=== PATIENT | female | born 1990 | race Caucasian/White ===

== ENCOUNTER 2019-06-06 18:32 | Emergency (ER) | payer BC ==
[2019-06-06] MEDS ORDERED: Sodium Chloride 0.9% 10 ML Syringe FLUSH PRN (18:43)
--- NOTE | 2019-06-06 18:49 | EDM.PDOC ---
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 Patient reports that she is status post vaginal delivery on 05/05/2019. Patient reports that since that time she's had vaginal bleeding because she is taking Lovenox for DVTs. Patient reports that this morning she started having increased amount of bleeding passing multiple clots she's been through 20 pads today so she became concerned and came to the emergency department for evaluation. Patient reports that she's had mild abdominal cramping which is consistent with her normal menses nausea no vomiting no fever no chills no back pain no shortness of breath no chest pain. Patient's OB is Dr. Dickerson. Of note, patient reports that she started bleeding approximately 8 AM this morning and the bleeding has been consistent throughout the day - Related Data Allergies Allergy/AdvReac Type Severity Reaction Status Date / Time No Known Allergies Allergy Verified 06/06/19 18:45 Home Meds: Home Meds Ferrous Sulfate [Iron] 1 tab PO DAILY 05/05/19 [History] [id number]/Iron Fumarate/FA/DSS [ 19 Tablet] 1 each PO DAILY 05/05/19 [ History] Acetaminophen [Tylenol] 650 mg PO Q4H PRN tablet 05/07/19 [Rx] Enoxaparin [Lovenox] 90 mg SUBCUT Q12H syringe 05/07/19 [Rx] Past Medical History - Past Health History Medical/Surgical History: Denies Medical/Surgical History Cardiovascular History: Reports: Other (See Below) Other Cardiovascular History: history of DVT in the last 6 months, treated with lovenox 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 Denies: Hematemesis, Hematochezia, Nausea, Vomiting : Reports: Other (Vaginal bleeding) ED EXAM, RENAL/ - Physical Exam Exam: See Below Exam Limited By: No Limitations General Appearance: Alert, WD/WN, Mild Distress Ears: Normal External Exam, Normal Canal, Hearing Grossly Normal, Normal TMs Throat/Mouth: Normal Inspection, Normal Lips, Normal Teeth, Normal Gums, Normal Oropharynx, Normal Voice, No Airway Compromise Head: Atraumatic, Normocephalic Neck: Normal Inspection, Supple, Non-Tender, Full Range of Motion Respiratory/Chest: No Respiratory Distress, Lungs Clear, Normal Breath Sounds, No Accessory Muscle Use, Chest Non-Tender Cardiovascular: Normal Peripheral Pulses, Regular Rate, Rhythm, No Edema, No Gallop, No JVD, No Murmur, No Rub GI/Abdominal: Normal Bowel Sounds, Soft, Non-Tender, No Organomegaly, No Distention, No Abnormal Bruit, No Mass (Female) Exam: Vaginal Bleeding, Other (Pelvic exam, 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 , clots and blood in the vault were cleared him a patient has clots in the os with minimal ooze of blood as a constant small stream) Back Exam: Normal Inspection, Full Range of Motion, NT Extremities: Normal Inspection, Normal Range of Motion, Non-Tender, Normal Capillary Refill, No Pedal Edema Neurological: Alert Skin Exam: Warm, Dry, No Rash Course - Vital Signs Last Recorded V/S: Last Vital Signs Temp 96.6 F 06/06/19 18:39 Pulse 104 H 06/06/19 18:39 Resp 14 06/06/19 18:39 BP 105/81 06/06/19 18:39 Pulse Ox 97 06/06/19 18:39 - Orders/Labs/Meds Orders: Active Orders 24 hr Category Date Time Status Pelvic Exam, Set Up [RC] ASDIRECTED Care 06/06/19 18:44 Active COMPREHENSIVE METABOLIC PN,CMP [CHEM] Stat Lab 06/06/19 19:30 Received INR,PT,PROTHROMBIN TIME [COAG] Stat Lab 06/06/19 19:30 Received TYPE AND SCREEN [BBK] Stat Lab 06/06/19 19:30 Received Sodium Chloride 0.9% [Saline Flush] Med 06/06/19 18:43 Active 10 ml FLUSH ASDIRECTED PRN Saline Lock Insert [OM.PC] Stat Oth 06/06/19 18:43 Ordered Medication Orders Sodium Chloride (Saline Flush) 10 ml FLUSH ASDIRECTED PRN PRN Reason: Keep Vein Open Last Admin: 06/06/19 19:44 Dose: 10 ml Labs: Laboratory Tests 06/06/19 Range/Units 19:30 WBC 8.99 (3.98-10.04) K/mm3 RBC 3.60 L (3.98-5.22) M/mm3 Hgb 11.2 D (11.2-15.7) gm/dl Hct 34.0 L (34.1-44.9) % MCV 94.4 (79.4-94.8) fl MCH 31.1 (25.6-32.2) pg MCHC 32.9 (32.2-35.5) g/dl RDW Std Deviation 41.5 (36.4-46.3) fL Plt Count 404 H D (182-369) K/mm3 MPV 8.7 L (9.4-12.3) fl Neut % (Auto) 60.3 (34.0-71.1) % Lymph % (Auto) 30.6 (19.3-51.7) % [place] % (Auto) 7.3 (4.7-12.5) % Eos % (Auto) 1.4 (0.7-5.8) Baso % (Auto) 0.3 (0.1-1.2) % Neut # (Auto) 5.41 (1.56-6.13) K/mm3 Lymph # (Auto) 2.75 (1.18-3.74) K/mm3 [place] # (Auto) 0.66 H (0.24-0.36) K/mm3 Eos # (Auto) 0.13 (0.04-0.36) K/mm3 Baso # (Auto) 0.03 (0.01-0.08) K/mm3 Meds: Medications Generic Name Dose Route Start Last Admin Trade Name Freq PRN Reason Stop Dose Admin Sodium Chloride 10 ml 06/06/19 18:43 06/06/19 19:44 Saline Flush FLUSH 10 ml ASDIRECTED PRN Administration Keep Vein Open Discontinued Medications Generic Name Dose Route Start Last Admin Trade Name Freq PRN Reason Stop Dose Admin Misoprostol 600 mcg 06/06/19 19:50 Cytotec PO 06/06/19 19:51 ONETIME ONE - Re-Assessments/Exams Free Text/Narrative Re-Assessment/Exam: 06/06/19 19:[address] Iglesias who encourages 600 g of Cytotec by mouth have patient follow-up with Dr. Dickerson tomorrow Departure - Departure Time of Disposition: 19:55 Disposition: Home, Self-Care 01 Clinical Impression: Dysfunctional uterine bleeding - Discharge Information Referrals: Saravanan Dickerson MD [Primary Care Provider] - Forms: ED Department Discharge Additional Instructions: Home, rest, follow-up with Dr. Dickerson tomorrow and return to the emergency department sooner for any worsening condition Sepsis Event Note - Evaluation Sepsis Screening Result: No Definite Risk - Focused Exam Vital Signs: Vital Signs Temp Pulse Resp BP Pulse Ox 06/06/19 18:39 96.6 F 104 H 14 105/81 97 Date Exam was Performed: 06/06/19 Time Exam was Performed: 19:55 - My Orders Last 24 Hours: My Active Orders 06/06/19 18:43 Sodium Chloride 0.9% [Saline Flush] 10 ml FLUSH ASDIRECTED PRN Saline Lock Insert [OM.PC] Stat 06/06/19 18:44 Pelvic Exam, Set Up [RC] ASDIRECTED 06/06/19 19:30 COMPREHENSIVE METABOLIC PN,CMP [CHEM] Stat INR,PT,PROTHROMBIN TIME [COAG] Stat TYPE AND SCREEN [BBK] Stat - Assessment/Plan Last 24 Hours: My Active Orders 06/06/19 18:43 Sodium Chloride 0.9% [Saline Flush] 10 ml FLUSH ASDIRECTED PRN Saline Lock Insert [OM.PC] Stat 06/06/19 18:44 Pelvic Exam, Set Up [RC] ASDIRECTED 06/06/19 19:30 COMPREHENSIVE METABOLIC PN,CMP [CHEM] Stat INR,PT,PROTHROMBIN TIME [COAG] Stat TYPE AND SCREEN [BBK] Stat
[2019-06-06] MEDS ORDERED: Misoprostol 100 MCG Tab PO ONE (19:50)
== END 2019-06-06 20:24 | disposition home or self-care (01) ==
LOC: JD.ED 18:32
DX: O72.2 Delayed and secondary postpartum hemorrhage (principal); Z86.718 Personal history of other venous thrombosis and embolism; Z79.01 Long term (current) use of anticoagulants
CPT/HCPCS: 36415; 80053; 85025; 85610; 86850; 86900; 86901; 99284; A9270; 99283

== ENCOUNTER 2020-06-01 00:21 | Inpatient (IN) | payer BC ==
[2020-06-01] MEDS ORDERED: Sodium Chloride 0.9% 10 ML Syringe FLUSH PRN (00:34)
[2020-06-01] MEDS ORDERED: Nalbuphine 10 MG/1 ML Vial IVPUSH PRN (00:34)
[2020-06-01] MEDS ORDERED: Lidocaine 1% 50 ML MDV INJECT ONE (00:34)
[2020-06-01] MEDS ORDERED: Calcium Carbonate 500 MG Tab.Chew PO PRN (00:34)
[2020-06-01] MEDS ORDERED: Ondansetron 4 MG/2 ML SDV IVPUSH PRN ×2 (00:34→01:35)
[2020-06-01] MEDS ORDERED: Oxytocin/Lactated Ringers 10 UNIT/1,000 ML BAG IV SCH ×2 (00:45)
[2020-06-01] MEDS: Lactated Ringers 1,000 ML IV SCH ×3 (01:11→02:47)
[2020-06-01] MEDS ORDERED: fentaNYL 100 MCG/2 ML SDV EPIDUR PRN (01:35)
[2020-06-01] MEDS ORDERED: ePHEDrine 50 MG/ML SDV IVPUSH PRN (01:35)
--- NOTE | 2020-06-01 01:39 | PCM.PREANE ---
Preanesthetic Assessment - Procedure Proposed Procedure: Epidural - Anesthesia/Transfusion/Family Hx Anesthesia History: Prior Anesthesia Without Reaction Family History of Anesthesia Reaction: No Transfusion History: No Prior Transfusion(s) Intubation History: Unknown - Review of Systems General: No Symptoms Pulmonary: No Symptoms Cardiovascular: No Symptoms Gastrointestinal: No Symptoms (GERD) Neurological: No Symptoms Other: Reports: None (History of DVT in November 2018(On daily lovenox) last dose 05/31/2020 @ 0545 1/2 dose), Easy Bruising - Physical Assessment NPO Status Date: 05/31/20 NPO Status Time: 19:00 Vital Signs: HR: Sat: B/P: Resp: Temp: Height: 1.63 m Weight: 100.244 kg ASA Class: 2 Mental Status: Alert & Oriented x3 Airway Class: Mallampati = 2 Dentition: Reports: Normal Dentition, Caries Thyro-Mental Finger Breadths: 3 Mouth Opening Finger Breadths: 3 ROM/Head Extension: Full Lungs: Clear to Auscultation, Normal Respiratory Effort Cardiovascular: Regular Rate, Regular Rhythm, No Murmurs - Lab Values: Laboratory Last Values WBC 8.76 K/mm3 (3.98-10.04) 06/01/20 00:49 RBC 3.78 M/mm3 (3.98-5.22) L 06/01/20 00:49 Hgb 11.8 gm/dl (11.2-15.7) 06/01/20 00:49 Hct 35.7 % (34.1-44.9) 06/01/20 00:49 MCV 94.4 fl (79.4-94.8) 06/01/20 00:49 MCH 31.2 pg (25.6-32.2) 06/01/20 00:49 MCHC 33.1 g/dl (32.2-35.5) 06/01/20 00:49 RDW Std Deviation 43.0 fL (36.4-46.3) 06/01/20 00:49 Plt Count 259 K/mm3 (182-369) 06/01/20 00:49 MPV 9.9 fl (9.4-12.3) 06/01/20 00:49 Neut % (Auto) 63.1 % (34.0-71.1) 06/01/20 00:49 Lymph % (Auto) 27.9 % (19.3-51.7) 06/01/20 00:49 [place] % (Auto) 8.1 % (4.7-12.5) 06/01/20 00:49 Eos % (Auto) 0.5 (0.7-5.8) L 06/01/20 00:49 Baso % (Auto) 0.2 % (0.1-1.2) 06/01/20 00:49 Neut # (Auto) 5.53 K/mm3 (1.56-6.13) 06/01/20 00:49 Lymph # (Auto) 2.44 K/mm3 (1.18-3.74) 06/01/20 00:49 [place] # (Auto) 0.71 K/mm3 (0.24-0.36) H 06/01/20 00:49 Eos # (Auto) 0.04 K/mm3 (0.04-0.36) 06/01/20 00:49 Baso # (Auto) 0.02 K/mm3 (0.01-0.08) 06/01/20 00:49 Above labs reviewed and noted and within acceptable ranges to proceed with epidural. - Allergies Allergies/Adverse Reactions: Allergies Allergy/AdvReac Type Severity Reaction Status Date / Time No Known Allergies Allergy Verified 06/01/20 00:34 - Anesthesia Plan Pre-Op Medication Ordered: None - Acknowledgements Anesthesia Type Planned: Epidural Pt an Appropriate Candidate for the Planned Anesthesia: Yes Alternatives and Risks of Anesthesia Discussed w Pt/Guardian: Yes Pt/Guardian Understands and Agrees with Anesthesia Plan: Yes PreAnesthesia Questionnaire - Past Health History Medical/Surgical History: Denies Medical/Surgical History Cardiovascular History: Reports: Other (See Below) Other Cardiovascular History: history of DVT in the last 6 months, treated with lovenox 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: Hematologic History: Reports: Anticoagulation Therapy Other Hematologic History: Takes lovenox 40mg once daily last taken 05/31/545 only took 1/2 dose 20 mg - Past Surgical History Cardiovascular Surgical History: Reports: None - HOME MEDS Home Medications: Home Meds Ferrous Sulfate [Iron] 1 tab PO DAILY 05/05/19 [History] Prenat 115/Iron Fum/Folic/Dss [ 19 Tablet] 1 each PO DAILY 05/05/19 [History] Enoxaparin [Lovenox] 40 mg SUBCUT Q12H 06/01/20 [History] - CURRENT (IN HOUSE) MEDS Current Meds: Current Medications Calcium Carbonate/Glycine (Tums) 1,000 mg PO Q2H PRN PRN Reason: Indigestion Ephedrine Sulfate (Ephedrine Sulfate) 5 mg IVPUSH ASDIRECTED PRN PRN Reason: Hypotension Fentanyl (Sublimaze) 100 mcg EPIDUR Q3H PRN PRN Reason: Pain Fentanyl/Bupivacaine HCl (Fentanyl/Bupivacaine/Ns 2 Mcg-0.125% 100 Ml) 100 ml EPIDUR ASDIRECTED JEYSON Oxytocin/Lactated Ringer's (Pitocin In Lr 10 Units/1,000 Ml) 10 unit in 1,000 mls @ 12 mls/hr IV TITRATE JEYSON; Protocol Oxytocin/Lactated Ringer's (Pitocin In Lr 10 Units/1,000 Ml) 10 unit in 1,000 mls @ 500 mls/hr IV .CONTINUOUS JEYSON Lactated Ringer's (Ringers, Lactated) 1,000 mls @ 100 mls/hr IV ASDIRECTED JEYSON Last Admin: 06/01/20 01:11 Dose: 100 mls/hr Documented by: Miscellaneous Medication (Phenylephrine 1 Mg/10 Ml-Ns) 0 mg IVPUSH ONETIME ONE Stop: 06/01/20 01:36 Nalbuphine HCl (Nubain) 10 mg IVPUSH Q2H PRN PRN Reason: Pain Ondansetron HCl (Zofran) 4 mg IVPUSH Q4H PRN PRN Reason: Nausea/Vomiting Ondansetron HCl (Zofran) 4 mg IVPUSH ONETIME PRN PRN Reason: Nausea/Vomiting Sodium Chloride (Saline Flush) 10 ml FLUSH ASDIRECTED PRN PRN Reason: Keep Vein Open Discontinued Medications Lidocaine HCl (Xylocaine 1%) 20 ml INJECT ONETIME ONE Stop: 06/01/20 00:35
[2020-06-01] MEDS ORDERED: Bupivacaine/fentaNYL/NS 100 ML Bag EPIDUR SCH (01:45)
--- NOTE | 2020-06-01 02:00 | PCM.LDHP ---
L&D History of Present Illness - General Date of Service: 06/01/20 Admit Problem/Dx: Patient Status Order with Admit Dx/Problem 06/01/20 00:35 Patient Status [ADT] Routine Admission Diagnosis/Problem Admission Diagnosis/Problem Term 06/01/20 01:48 Nallely is a 30-year-old 3 para 1-0-1-1 white female who is admitted on the early a.m. hours of 06/01/2020 at 38-seventh weeks gestational age with an BRIANNA of 06/10/2020 in active labor with SROM and advanced cervical dilation of 6 cm. Source of Information: Patient History Limitations: Reports: No Limitations - History of Present Illness Introduction:: Nallely is a 30-year-old 3 para 1-0-1-1 white female who is admitted on the early a.m. hours of 06/01/2020 at 38-seventh weeks gestational age with an BRIANNA of 06/10/2020 in active labor with SROM and advanced cervical dilation of 6 cm. She reports having had SROM with resultant clear amniotic fluid at 2330 hrs. on 05/31/2020. She started lulu shortly thereafter and is now lulu p.o. every 3 minutes, moderate intensity lasting for more than. Initial nurse evaluation upon admission showed cervix base 6 cm approximately 90% effaced vertex presentation. Clear amniotic fluid is noted. heart tones are reassuring. Contractions are as reported above. Patient has a history of DVT during her first and has been on subcutaneous Lovenox at 40 mg/day. On the a.m. of 05/31/2020 patient had an inkling of some potential labor pains and took only 20 mg dose at 0545 hours. She had a scheduled induction set for 06/03/2025. 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 Menarche approximately age [age]. Cycles q. months. No control at the time of conception. Positive hCG was 10/06/2019 with last menstrual period at 09/08/2019. Cycles come q. 30 days. H er BRIANNA was determined by an ultrasound done on 11/15/2019. At that time she is approximately 10+ weeks gestational age. Her past obstetric experience includes the followin. Elective termination of 02/14/2011 at 8 weeks gestation 2. Vacuum extraction delivery on 05/05/2019 at 39 weeks gestational age7 pounds 2 ouncesfemale [facility] Albachild's name is Daisy Briseno. course: Patient was seen early in at approximately 10 weeks gestational age on 11/15/2019 has been seen on a very regular basis since that time. Her fundal height growth has been appropriate, she has been on Lovenox therapy since her first visit. Weight gain has been from 203 to 224 pounds for 21 pound increase. Her vital signs have been stable. Patient has had no other significant concerns during the course of the . She is gr oup B strep negative. CBC has been done on regular basis and platelet counts have been normal. Patient received her flu immunization on 04/04/2020 and her Tdap on the same date. She is rubella immune. Laboratory testing in shows blood to be a positive with a negative antibody screen on first visit. Her hemoglobin at that time was 12.3 g/dL and platelets were 442,000. She is rubella immune. RPR is nonreactive. Urine culture was negative. Hepatitis B surface antigen and HIV assays were both negative. Chlamydia and gonorrhea tests were negative. Second trimester labs showed a hemoglobin of 10.7 g/dL and patient was started on ferrous sulfate 2 tablets daily in addition to her vitamin. Her platelets at that time were 291,001-hour GTT was 119. Her next platelet count was on 05/03/2020 and that was at 288,000. Her hemoglobin was increased to 11.0 g/dL. Group B strep screen was negative. Second trimester RPR 03/13/2020 was nonreactive. Allergies: None Medications: Lovenox 40 mg subcu daily 2. Ferrous sulfate 325 mg p.o. 2 tabs daily 3. vitamins 1 p.o. daily. Past medical history: 1. Vaginal delivery 05/05/2019 via vacuum extraction 2. 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 Past surgical history: 1. Hernia repair at 6 weeks of age Family history: Patient's mother is alive but has a history of superficial blood clots. Father is alive with COPD, high blood pressure and history of smoking. 1 brother is alive and well. 2 sisters 1 has a history of blood clots/pulmonary embolism and is on blood thinners. Also has protein C deficiency. Paternal grandmother has a history of blood clots, DVT, is alive and well otherwise. Maternal grandfather is at age 80 secondary to pneumonia. Paternal grandmother is alive but has a history of breast cancer. Paternal grandfather is secondary to dementia. Patient does not have any family history of related issues, medication reactions, and seizure reaction. Does have significant family history of bleeding clotting disorders as above. Social history: Patient is . is Scott she lives in [place], [place]. She is a college graduate. She works at [employer]. She does not use any significant also alcohol, drugs or tobacco. Review of systems: In general patient has no complaints. She is presently lulu, leaking fluid. Baby has been active. Skin: Negative Lungs: No infectious symptoms or shortness of breath Cardiovascular: No chest pain or exercise intolerance Breasts: No lumps, changes in size, pain, dimpling, discharge or axillary or supraclavicular concerns. GI: Negative : Body habitus changes associated with Musculoskeletal: Negative Neurological: Negative Physical exam: In general the patient is well-developed, well-nourished, pleasant female of stated age in no acute distress. Evaluation clinic on 05/30/2020 patient's blood pressure is 106/70. Weight was 224 pounds. Preop weight was 203 pounds. Height is 5 feet 4 inches. Prepregnancy body mass index is 34.3. heart rate was 135 and fundal height was 39.5. Baby was in a vertex presentation at that time. Skin is warm dry without lesions. HEENT, neck and back within normal limits. Lungs are clear with good breath sounds in all lung cox. Cardiovascular exam shows regular and rhythm without murmurs. Breast exam is deferred at this time having been done at first visit and found to be normal it is not repeated at this point. Abdomen is gravid with last fundal height in clinic at 39.5 cm. Genital exam per digital evaluation shows cervix to be 8 cm, -1 station, cephalic presentation, 100% effaced, very soft and anterior. Clear amniotic fluid noted. Extremities and neurological exam are grossly within normal limits. - Related Data Allergies/Adverse Reactions: Allergies Allergy/AdvReac Type Severity Reaction Status Date / Time No Known Allergies Allergy Verified 06/01/20 00:34 Home Medications: Home Meds Ferrous Sulfate [Iron] 1 tab PO DAILY 05/05/19 [History] Prenat 115/Iron Fum/Folic/Dss [ 19 Tablet] 1 each PO DAILY 05/05/19 [History] Enoxaparin [Lovenox] 40 mg SUBCUT Q12H 06/01/20 [History] Past Medical History - Past Health History Medical/Surgical History: Denies Medical/Surgical History Cardiovascular History: Reports: Other (See Below) Other Cardiovascular History: history of DVT in the last 6 months, treated with lovenox RETAIL SPECIALIST History: Reports: Hematologic History: Reports: Anticoagulation Therapy Other Hematologic History: Takes lovenox 40mg once daily last taken 05/31/545 only took 1/2 dose 20 mg - Past Surgical History Cardiovascular Surgical History: Reports: None Social & Family History - Family History Family Medical History: No Pertinent Family History - Caffeine Use Caffeine Use: Reports: Coffee H&P Review of Systems - Review of Systems: Review Of Systems: See Below L&D Exam - Exam Exam: See Below - Vital Signs Vital Signs: Last Vital Signs Temp 36.9 C 06/01/20 00:35 Pulse 100 06/01/20 00:35 Resp 16 06/01/20 00:35 BP 130/85 06/01/20 00:35 Pulse Ox 95 06/01/20 00:35 Weight: 100.244 kg - Patient Data Lab Results Last 24 hrs: Laboratory Results - last 24 hr 06/01/20 06/01/20 06/01/20 Range/Units 00:49 00:49 00:51 WBC 8.76 (3.98-10.04) K/mm3 RBC 3.78 L (3.98-5.22) M/mm3 Hgb 11.8 (11.2-15.7) gm/dl Hct 35.7 (34.1-44.9) % MCV 94.4 (79.4-94.8) fl MCH 31.2 (25.6-32.2) pg MCHC 33.1 (32.2-35.5) g/dl RDW Std Deviation 43.0 (36.4-46.3) fL Plt Count 259 (182-369) K/mm3 MPV 9.9 (9.4-12.3) fl Neut % (Auto) 63.1 (34.0-71.1) % Lymph % (Auto) 27.9 (19.3-51.7) % Adams % (Auto) 8.1 (4.7-12.5) % Eos % (Auto) 0.5 L (0.7-5.8) Baso % (Auto) 0.2 (0.1-1.2) % Neut # (Auto) 5.53 (1.56-6.13) K/mm3 Lymph # (Auto) 2.44 (1.18-3.74) K/mm3 Adams # (Auto) 0.71 H (0.24-0.36) K/mm3 Eos # (Auto) 0.04 (0.04-0.36) K/mm3 Baso # (Auto) 0.02 (0.01-0.08) K/mm3 SARS-CoV-2 RNA (REUBEN) Negative (NEGATIVE) Blood Type A POSITIVE Gel Antibody Screen Negative Result Diagrams: 06/01/20 00:49 Problem List Initiated/Reviewed/Updated: Yes Orders Last 24hrs: Active Orders 24 hr Category Date Time Status Patient Status [ADT] Routine ADT 06/01/20 00:35 Active Activity as Tolerated [RC] PFP Care 06/01/20 00:35 Active Communication Order [RC] ASDIRECTED Care 06/01/20 00:35 Active Heart Tones [RC] ASDIRECTED Care 06/01/20 00:36 Active Notify Provider [RC] ASDIRECTED Care 06/01/20 01:35 Active Notify Provider [RC] PFP Care 06/01/20 00:35 Active Notify Provider [RC] PRN Care 06/01/20 00:35 Active Oxygen Therapy [RC] ASDIRECTED Care 06/01/20 01:35 Active Peripheral IV Care [RC] . DIRECTED Care 06/01/20 00:36 Active Pulse Oximetry [RC] ASDIRECTED Care 06/01/20 01:35 Active Pump Management, Intrathecal [RC] ASDIRECTED Care 06/01/20 00:36 Active Urinary Catheter Assessment [RC] ASDIRECTED Care 06/01/20 00:34 Active Vital Signs [RC] PER UNIT ROUTINE Care 06/01/20 00:35 Active Regular Diet [DIET] Diet 06/01/20 Breakfast Active RAPID PLASMA REAGIN,RPR [CHEM] Routine Lab 06/01/20 00:49 Received Bupivacaine/fentaNYL/NS [fentaNYL/Bupivacaine/NS 2 MCG- Med 06/01/20 01:45 Ordered 0.125% 100 ML] 100 ml EPIDUR ASDIRECTED Calcium Carbonate [Tums] Med 06/01/20 00:34 Active 1,000 mg PO Q2H PRN Lactated Ringers [Ringers, Lactated] 1,000 ml Med 06/01/20 00:45 Active IV ASDIRECTED Nalbuphine [Nubain] Med 06/01/20 00:34 Active 10 mg IVPUSH Q2H PRN Ondansetron [Zofran] Med 06/01/20 01:35 Ordered 4 mg IVPUSH ONETIME PRN Ondansetron [Zofran] Med 06/01/20 00:34 Active 4 mg IVPUSH Q4H PRN Oxytocin/Lactated Ringers [Pitocin in LR 10 Units/1,000 Med 06/01/20 00:45 Active ML] 10 unit in 1,000 ml IV .CONTINUOUS Oxytocin/Lactated Ringers [Pitocin in LR 10 Units/1,000 Med 06/01/20 00:45 Active ML] 10 unit in 1,000 ml IV TITRATE Phenylephrine HCl In 0.9% NaCl [Phenylephrine 1 MG/10 Med 06/01/20 01:35 Once ML-NS] See Dose Instructions IVPUSH ONETIME ONE Sodium Chloride 0.9% [Saline Flush] Med 06/01/20 00:34 Active 10 ml FLUSH ASDIRECTED PRN ePHEDrine [ePHEDrine sulfate] Med 06/01/20 01:35 Ordered 5 mg IVPUSH ASDIRECTED PRN fentaNYL [Sublimaze] Med 06/01/20 01:35 Ordered 100 mcg EPIDUR Q3H PRN Electronic Heart Tones Ext w TOCO [WOMSER] Oth 06/01/20 00:35 Ordered Routine Electronic Heart Tones Internal [WOMSER] Per Unit Oth 06/01/20 00:35 Ordered Routine Peripheral IV Insertion Adult [OM.PC] Routine Oth 06/01/20 00:35 Ordered Resuscitation Status Routine Resus Stat 06/01/20 00:34 Ordered Medication Orders Calcium Carbonate/Glycine (Tums) 1,000 mg PO Q2H PRN PRN Reason: Indigestion Ephedrine Sulfate (Ephedrine Sulfate) 5 mg IVPUSH ASDIRECTED PRN PRN Reason: Hypotension Fentanyl (Sublimaze) 100 mcg EPIDUR Q3H PRN PRN Reason: Pain Fentanyl/Bupivacaine HCl (Fentanyl/Bupivacaine/Ns 2 Mcg-0.125% 100 Ml) 100 ml EPIDUR ASDIRECTED JEYSON Oxytocin/Lactated Ringer's (Pitocin In Lr 10 Units/1,000 Ml) 10 unit in 1,000 mls @ 12 mls/hr IV TITRATE JEYSON; Protocol Oxytocin/Lactated Ringer's (Pitocin In Lr 10 Units/1,000 Ml) 10 unit in 1,000 m ls @ 500 mls/hr IV .CONTINUOUS JEYSON Lactated Ringer's (Ringers, Lactated) 1,000 mls @ 100 mls/hr IV ASDIRECTED JEYSON Last Admin: 06/01/20 01:11 Dose: 100 mls/hr Documented by: DENISA Miscellaneous Medication (Phenylephrine 1 Mg/10 Ml-Ns) 0 mg IVPUSH ONETIME ONE Stop: 06/01/20 01:36 Nalbuphine HCl (Nubain) 10 mg IVPUSH Q2H PRN PRN Reason: Pain Ondansetron HCl (Zofran) 4 mg IVPUSH Q4H PRN PRN Reason: Nausea/Vomiting Ondansetron HCl (Zofran) 4 mg IVPUSH ONETIME PRN PRN Reason: Nausea/Vomiting Sodium Chloride (Saline Flush) 10 ml FLUSH ASDIRECTED PRN PRN Reason: Keep Vein Open Assessment/Plan Comment:: 1. 38-5/7-week gestational age , active labor with advanced cervical dilation and SROM with resultant clear amniotic fluid. 2. History of DVT with last presently on Lovenox prophylaxis. No symptoms or signs of DVT or pulmonary emboli at this time. Last dosage was a half dose (20 mg) taken subcu at 0545 hrs. on 05/31/2020. 3. Group B strep is negative. 4. Patient deciding on breast-feeding at this time 5. Patient has received her Tdap and her flu vaccination. She is rubella immune. 6. Patient desiring epidural in L&D. Plan, 1. Anticipate 2. Routine labor care 3. Admission labs to consist of CBC, Covid19 evaluation, RPR per protocol. 4. Will restart Lovenox therapy after delivery.
[2020-06-01] MEDS ORDERED: fentaNYL 100 MCG/2 ML SDV ONE (02:09)
--- NOTE | 2020-06-01 04:43 | PCM.SN.2 ---
- Free Text/Narrative Note: Nallely is a 30-year-old 3 now para 2-0-1-2 white female who is admitted on the early a.m. hours of 06/01/2020 at 38-5/7 weeks gestational age with an BRIANNA of 06/10/2020 in active labor with SROM and advanced cervical dilation of 6 cm. History of DVT and was on prophylactic dose of [id number] mg subcu daily. She took her last dose at 0545 hrs. on 05/31/2020. Patient progressed slowly to complete cervical dilation. She had an epidural for labor analgesia. At 0411 hours on 06/01/2020 she delivered a viable, espinoza, 3884 g (8 pounds 9.0 ounces), 22.0 inch long male with Apgars of 8 and 9. Delivery was accomplished by gentle downward traction and offered traction to deliver the shoulders. No problems were encountered. The baby was placed on mom's abdomen. Umbilical cord was allowed to pulsate for 2 to 3 minutes and was clamped x2 and cut by the baby's father Scott. Pitocin was increased to 500 cc an hour to facilitate increase in uterine tone and decrease likelihood of uterine bleeding. Umbilical cord was clamped x2 and cut. The cord had 3 vessels. Cord blood was obtained. The placenta delivered in a Juarez presentation at 0418 hours. It appeared intact and complete and was discarded per patient desire. A small superficial first-degree vaginal/perineal laceration was noted. This was closed with a short running suture of 3-0 Monocryl suture. Estimated blood loss was 200 cc. Patient plans to breast-feed. Condition: Good
[2020-06-01] MEDS ORDERED: Docusate Sodium 100 MG Cap PO PRN (04:56)
[2020-06-01] MEDS ORDERED: Ibuprofen 600 MG Tab PO PRN (04:56)
[2020-06-01] MEDS ORDERED: Benzocaine/Menthol 20%-0.5% Spray 56 GM Canister TOP PRN (04:56)
[2020-06-01] MEDS ORDERED: Witch Hazel Medicated Pads 40/Jar TOP PRN (04:56)
[2020-06-01] MEDS ORDERED: Enoxaparin 40 MG/0.4 ML Syringe SUBCUT SCH (05:00)
[2020-06-01] MEDS: Acetaminophen 325 MG Tab PO PRN ×2 (13:33→18:15)
--- NOTE | 2020-06-01 14:16 | PCM48HPAN ---
Post Anesthesia Note - EVALUATION WITHIN 48HRS OF ANESTHETIC Vital Signs in Normal Range: Yes Patient Participated in Evaluation: Yes Respiratory Function Stable: Yes Airway Patent: Yes Cardiovascular Function Stable: Yes Hydration Status Stable: Yes Pain Control Satisfactory: Yes Nausea and Vomiting Control Satisfactory: Yes Mental Status Recovered: Yes Vital Signs: Last Vital Signs Temp 36.6 C 06/01/20 08:00 Pulse 89 06/01/20 06:00 Resp 16 06/01/20 08:00 BP 108/63 06/01/20 06:00 Pulse Ox 98 06/01/20 08:00
[2020-06-01] MEDS: Enoxaparin 40 MG/0.4 ML Syringe SUBCUT SCH (18:03)
--- NOTE | 2020-06-02 06:54 | PCM.DCSUM1 ---
Discharge Summary - Hospital Course Free Text/Narrative:: Nallely is a 30-year-old 3 now para 2-0-1-2 white female who is admitted on the early a.m. hours of 06/01/2020 at 38-5/7 weeks gestational age with an BRIANNA of 06/10/2020 in active labor with SROM and advanced cervical dilation of 6 cm. History of DVT and was on prophylactic dose of [id number] mg subcu daily. She took her last dose at 0545 hrs. on 05/31/2020. Patient progressed slowly to complete cervical dilation. She had an epidural for labor analgesia. At 0411 hours on 06/01/2020 she delivered a viable, espinoza, 3884 g (8 pounds 9.0 ounces), 22.0 inch long male infant with Apgars of 8 and 9. Delivery was accomplished by gentle downward traction and offered traction to deliver the shoulders. No problems were encountered. The baby was placed on mom's abdomen. Umbilical cord was allowed to pulsate for 2 to 3 minutes and was clamped x2 and cut by the baby's father Scott. Pitocin was increased to 500 cc an hour to facilitate increase in uterine tone and decrease likelihood of uterine bleeding. Umbilical cord was clamped x2 and cut. The cord had 3 vessels. Cord blood was obtained. The placenta delivered in a Juarez presentation at 0418 hours. It appeared intact and complete and was discarded per patient desire. A small superficial first-degree vaginal/perineal laceration was noted. This was closed with a short running suture of 3-0 Monocryl suture. Estimated blood loss was 200 cc. Patient plans to breast-feed. patient has done well. She is ambulating well, has recovered from her epidural with no problems. She is voiding well on his nursing without concerns. She is desiring discharge home. Condition: Good Diagnosis: Stroke: No - Discharge Data Discharge Date: 06/02/20 Discharge Disposition: Home, Self-Care 01 Condition: Good - Referral to Home Health Primary Care Physician: Saravanan Dickerson MD - Patient Instructions Diet: Regular Diet as Tolerated (Nursing diet with increased calories and calcium as recommended) Activity: As Tolerated (No intercourse or tampons until bleeding resolves) Driving: May Drive Today Showering/Bathing: May Shower Showering/Bathing, Other: May take a bath Notify Provider of: Fever, Increased Pain, Swelling and Redness, Nausea and/or Vomiting - Discharge Plan Home Medications: Home Meds Ferrous Sulfate [Iron] 1 tab PO DAILY 05/05/19 [History] Prenat 115/Iron Fum/Folic/Dss [ 19 Tablet] 1 each PO DAILY 05/05/19 [History] Enoxaparin [Lovenox] 40 mg SUBCUT Q12H 06/01/20 [History] Acetaminophen [Tylenol] 650 mg PO Q4H PRN tablet 06/02/20 [Rx] Docusate Sodium [Colace] 100 mg PO BID PRN cap 06/02/20 [Rx] Ibuprofen [Motrin] 600 mg PO Q4H PRN tablet 06/02/20 [Rx] Referrals: Saravaann Dickerson MD [Primary Care Provider] - (Return to clinicDr. Dickerson2 weeks.) - Discharge Summary/Plan Comment DC Time >30 min.: No Discharge Summary/Plan Comment: Discharge instructions: 1. Discharge home 2. Diet, activity and follow-up discussed with patient. Recommend nursing diet with increased calories and calcium. 3. Precautions given concern increased pain, bleeding, temperature, signs/symptoms of DVT/PE. 4. Medications per home medication was printed, discussed with and given to the patient. 5. Return to clinic-Dr. Dickerson-[facility] in 2 weeks. Diagnosis: 1. Term -delivered 2. History of DVTprevious pregnancyon prophylactic Lovenox during this pregnancycontinued Condition: Good - Patient Data Vitals - Most Recent: Last Vital Signs Temp 36.7 C 06/02/20 05:15 Pulse 76 06/02/20 05:15 Resp 15 06/02/20 05:15 BP 109/65 06/02/20 05:15 Pulse Ox 97 06/02/20 05:15 Weight - Most Recent: 100.244 kg Lab Results - Last 24 hrs: Laboratory Results - last 24 hr 06/01/20 Range/Units 00:49 RPR Non-reactive (NONREACTIVE) Med Orders - Current: Current Medications Acetaminophen (Tylenol) 650 mg PO Q4H PRN PRN Reason: mild pain or fever Last Admin: 06/01/20 18:15 Dose: 650 mg Documented by: Benzocaine/Menthol (Dermoplast Pain Relief [place]) 0 gm TOP ASDIRECTED PRN PRN Reason: Perineal Comfort Measure Last Admin: 06/01/20 05:58 Dose: 1 can Documented by: Docusate Sodium (Colace) 100 mg PO BID PRN PRN Reason: Constipation Last Admin: 06/01/20 05:58 Dose: 100 mg Documented by: Enoxaparin Sodium (Lovenox) 40 mg SUBCUT Q24H JEYSON Last Admin: 06/01/20 18:03 Dose: Not Given Documented by: Ibuprofen (Motrin) 600 mg PO Q4H PRN PRN Reason: Mild pain or fever Witch Briana (Tucks) 1 pad TOP ASDIRECTED PRN PRN Reason: Perineal Comfort Measure Last Admin: 06/01/20 05:58 Dose: 1 can Documented by: Discontinued Medications Calcium Carbonate/Glycine (Tums) 1,000 mg PO Q2H PRN PRN Reason: Indigestion Enoxaparin Sodium (Lovenox) 40 mg SUBCUT Q12H JEYSON Ephedrine Sulfate (Ephedrine Sulfate) 5 mg IVPUSH ASDIRECTED PRN PRN Reason: Hypotension Fentanyl (Sublimaze) 100 mcg EPIDUR Q3H PRN PRN Reason: Pain Last Admin: 06/01/20 02:10 Dose: 100 mcg Documented by: Fentanyl (Sublimaze) Confirm Administered Dose 100 mcg .ROUTE .[facility] ONE Stop: 06/01/20 02:10 Last Admin: 06/01/20 22:39 Dose: Not Given Documented by: Fentanyl/Bupivacaine HCl (Fentanyl/Bupivacaine/Ns 2 Mcg-0.125% 100 Ml) 100 ml EPIDUR ASDIRECTED [facility] Last Admin: 06/01/20 02:10 Dose: 100 ml Documented by: Oxytocin/Lactated Ringer's (Pitocin In Lr 10 Units/1,000 Ml) 10 unit in 1,000 mls @ 12 mls/hr IV TITRATE JEYSON; Protocol Oxytocin/Lactated Ringer's (Pitocin In Lr 10 Units/1,000 Ml) 10 unit in 1,000 mls @ 500 mls/hr IV .CONTINUOUS JEYSON Lactated Ringer's (Ringers, Lactated) 1,000 mls @ 100 mls/hr IV ASDIRECTED [facility] Last Admin: 06/01/20 02:47 Dose: 100 mls/hr Documented by: Lidocaine HCl (Xylocaine 1%) 20 ml INJECT ONETIME ONE Stop: 06/01/20 00:35 Last Admin: 06/01/20 22:38 Dose: Not Given Documented by: Miscellaneous Medication (Phenylephrine 1 Mg/10 Ml-Ns) 0 mg IVPUSH ONETIME ONE Stop: 06/01/20 01:36 Last Admin: 06/01/20 22:38 Dose: Not Given Documented by: Nalbuphine HCl (Nubain) 10 mg IVPUSH Q2H PRN PRN Reason: Pain Ondansetron HCl (Zofran) 4 mg IVPUSH Q4H PRN PRN Reason: Nausea/Vomiting Ondansetron HCl (Zofran) 4 mg IVPUSH ONETIME PRN PRN Reason: Nausea/Vomiting Sodium Chloride (Saline Flush) 10 ml FLUSH ASDIRECTED PRN PRN Reason: Keep Vein Open
[2020-06-02] MEDS: Enoxaparin 40 MG/0.4 ML Syringe SUBCUT SCH (10:52)
== END 2020-06-02 10:20 | disposition home or self-care (01) | DRG 560 ==
LOC: JD.OBCHECK 00:21 → JD.OB 00:26 → JD.OBCHECK 00:34 → JD.OB 00:35 → OBSVTOIN 04:11 → JD.MS 04:12 → JD.OB 11:19
PROVIDERS: ADMIT Obstetrics & Gynecology; ATTEND Obstetrics & Gynecology
PROC: 10E0XZZ Delivery of Products of Conception, External Approach (ICD-10-PCS; principal; 2020-06-01)
PROC: 0HQ9XZZ Repair Perineum Skin, External Approach (ICD-10-PCS; 2020-06-01)
PROC: 3E0R3BZ Introduction of Anesthetic Agent into Spinal Canal, Percutaneous Approach (ICD-10-PCS; 2020-06-01)
PROC: 00HU33Z Insertion of Infusion Device into Spinal Canal, Percutaneous Approach (ICD-10-PCS; 2020-06-01)
DX: O70.0 First degree perineal laceration during delivery (principal); Z37.0 Single live birth; Z3A.38 38 weeks gestation of pregnancy; Z86.718 Personal history of other venous thrombosis and embolism; Z20.828 Contact with and (suspected) exposure to other viral communicable diseases; Z79.01 Long term (current) use of anticoagulants
CPT/HCPCS: 36415; 59025; 59409; 85025; 86592; 86850; 86900; 86901; A9270-GY; J3010; J7120; U0002